=== PATIENT | female | born 1985 | race Caucasian/White ===

== ENCOUNTER 2019-06-30 07:03 | Day surgery (SDC) | payer OTHER, SELFPAY ==
--- NOTE | 2019-06-22 08:45 | PCM.HP.BLA ---
History and Physical Date of Admission: 06/30/19 HPI: The patient is a 34 year old female presenting for pre-operative visit. 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 ??Procedure discussed along with risks, benefits and complications. ?Other alternatives discussed for management. Consent form signed??Yes.? PAST MEDICAL HISTORY PAST MEDICAL HISTORY Diagnosis Date ? Allergy, unspecified not elsewhere classified ? ? Cervical cancer (HCC) 03/2014 ? Gastroesophageal reflux disease 09/14/2015 ? ? PAST SURGICAL HISTORY PAST SURGICAL HISTORY Procedure Laterality Date ? CERVIX UTERI CONIZA LP ELCTRO EXCI ? 04/07/2014 ? KNEE ARTHROSCOPY FOR INFECTION; DRAINAGE Right 12/2016 ? PAST SURGICAL HISTORY OF ? 04/07/08 ? Excision of lipoma from abdomen ? ? CURRENT MEDICATIONS Current Outpatient Medications Medication Sig Dispense Refill ? fluticasone (FLONASE) 50 mcg/actuation nasal spray Use 2 Sprays in each nostril once daily. Rinse mouth after use. 1 Bottle 0 ? ALPRAZolam (XANAX) 0.25 mg tablet Take 1 tablet by mouth once daily as needed for Anxiety for up to 60 days. 30 tablet 0 ? Drospirenone-Ethinyl Estradiol (CARLOS, 28,) 3-0.03 mg per tablet Take one tablet by mouth daily to take active pills continuously 3 Package 4 ? omeprazole 20 mg ORAL capsule Take 20 mg by mouth as needed. ? ? ? No current facility-administered medications for this visit.? ? ALLERGIES:?Aviane [Levonorgestrel-Ethinyl Estrad]; Seasonal Allergies ? PERSONAL HISTORY:? SOCIAL HISTORY Social History ? Tobacco Use ? Smoking status: Never Smoker ? Smokeless tobacco: Never Used Substance Use Topics ? Alcohol use: Yes ? ? Comment: occasionally/ social ? Drug use: No ? FAMILY HISTORY:? FAMILY HISTORY FAMILY HISTORY Problem Relation Age of Onset ? Hypertension Mother ? ? Lipids Mother ? ? Asthma Mother ? ? COPD Mother ? ? Breast Cancer Mother 53 ? other (myocardial infarction) Mother ?[place] ? other (cerebral vascular accident) Father ? ? other (alcoholism) Father ? ? Diabetes Maternal Grandmother ? ? Stroke Maternal Grandmother ? ? Cancer Paternal Grandmother ?cervical or ovarian cancer unsure of which one. ? Cervical Cancer Paternal Grandmother ? ? Asthma Sister ? ? REVIEW OF SYMPTOMS: GENERAL: denies fevers or chills ENDOCRINOLOGY: has not been on steroids Cardiology : denies palpitations or chest pain Respiratory: denies SOB or cough Hematology: denies history of prolonged bleeding or easy bruising or VTE Allergy: Denies history of personal or family history of allergy to anesthesia ? ? PHYSICAL EXAMINATION: ? VITALS:?Blood pressure 132/90, weight 258 lb (117 kg). ? GENERAL:??The patient is well nourished, well hydrated in no acute distress. ?, The patient is oriented to time, place, and person. NECK:?Supple. No lynphadenopathy, normal thyroid, no thyromegaly. LUNGS:?Clear to auscultation bilaterally. no wheezes, rhonchi or rales HEART:?Regular rate and rhythm, Normal heart sounds and No murmurs or gallops GENITALIA:?Normal external genitalia, Urethral meatus normal, Bladder nontender, normal vagina and normal vaginal tone, normal cervix, normal uterus, size and consistency, normal adnexa without masses or tenderness and perineum WNL WET PREP:?Not indicated ? IMPRESSION:?History of endocervical adenocarcinoma ? PLAN:???The risks/benefits/alternatives and personal involved for the planned?total laparoscopic hysterectomy with bilateral salpingectomy?were reviewed with the patient. Her questions were answered to her satisfaction and she desires to proceed. ?Consent was signed. ?I reviewed with her postop instructions and expectations. Patient does plan discharge home same day if she meets criteria. ? ? I have reviewed and updated past medical and surgical history, medications and allergies? this history and physical was completed in my office on 06/20/2019
[2019-06-30] VITALS (8 sets, daily range): BP systolic 143–160; BP diastolic 90–107; PULSE 67–87; RESP 16–20; TEMP 36.2–37.3; O2SAT 95–100; BMI 98.3
[2019-06-30] MEDS: Ondansetron 4 MG/2 ML Vial IV (07:00)
[2019-06-30 07:34] LABS: Internal QC Validated? YES +Cl - CLEAR BKGD; Pregnancy, Urine Negative Negative
[2019-06-30] MEDS: Lactated Ringers 1,000 ML 40 ML IV ×2 (07:41→12:38)
[2019-06-30] MEDS: Phenazopyridine 95 MG Tablet 190 MG PO (07:44)
[2019-06-30] MEDS: Acetaminophen 500 MG Tablet 1000 MG PO (07:45)
[2019-06-30] MEDS: Gabapentin 600 MG Tablet PO (07:46)
[2019-06-30] MEDS: Celecoxib 200 MG Capsule 400 MG PO (07:46)
[2019-06-30] MEDS: Enoxaparin 40 MG/0.4 ML Syringe SC (07:47)
[2019-06-30] MEDS: Magnesium Sulfate 4gm/100mL 4 GM/100 ML IV.SOLN. IV (07:47)
[2019-06-30 07:49] LABS: Hematocrit 41.4 % (37-47); Hemoglobin 13.7 g/dL (12.0-15.0); Mean Corp Hgb Conc 33.1 g/dL (32-36); Mean Corpuscular Hgb 28.8 pg (27.0-32.0); Mean Corpuscular Volume 87.2 fL (81-99); Mean Platelet Vol. 9.7 fl (6.2-12.0); Platelet Count 321 K/mm3 (150-450); RBC Distribution Width CV 13.2 % (11.6-14.6); RBC Distribution Width SD 41.7 fl (35.1-43.9); Red Blood Count 4.75 M/mm3 (4.2-5.4); White Blood Count 7.1 K/mm3 (4.4-11.0)
[2019-06-30 08:25] LABS: Bedside Glucose 77 mg/dL (70-110)
[2019-06-30] MEDS: Cefazolin 2 GM in 0.9% Normal Saline 100 ML IV (09:34)
--- NOTE | 2019-06-30 09:35 | HYST_PTH ---
PATIENT: BRUCE RUSSELL [place] [facility] [id number] AGE/SX: 34/F ROOM: RE06/30/[address]: Dr. Belen Harvey MD : [id number] BED: DIS: 06/30/2019 SPEC #: [id number] RECD: 06/30/19 11:52 STATUS: CAT CUNHA #: [id number] DAYANA: 06/30/19 09:[address]: Belen Harvey DEPT: SURGICAL PATHOLOGY RECD BY: Santo Kruger ENTERED: 07/01/19 10:18 SP TYPE: HYSTERECT OTHR DR: Dr. Irving Perez III, MD Tissues: Uterus, NOS Procedures: Surgery Specimen Level V HEADER OPERATION: ERAS, hysterectomy, TLH, bilateral salpingectomy, cysto PRE-OP DIAGNOSIS: Endocervical adenocarcinoma TISSUE SUBMITTED: Uterus, cervix and bilateral salpingectomy MICROSCOPIC DIAGNOSIS Uterus, hysterectomy: Cervix - nabothian cysts and minimal chronic inflammation. Endocervix - no evidence of carcinoma Endometrium - proliferative endometrium with degenerative change. Myometrium - no pathologic change. Right and left fallopian tubes - no pathologic change. AM:dharmesh 07/04/19 COMMENT Reference is made to the patient's previous LEEP excision ([facility] [id number]) in which Exophytic well differentiated non-invasive endocervical adenocarcinoma was identified. Case has been reviewed in consultation with Dr. Smyth who concurs with the above diagnosis. IDC:SJ MICROSCOPIC DESCRIPTION Slides are reviewed. GROSS DESCRIPTION Received in fixative is one container labeled with the patient's name and designated uterus. The specimen consists of a uterus with attached cervix and two detached fallopian tubes. The uterus with cervix measures 7 x 5.5 x 3 cm and weighs 65 gm. The cervical os is oval in contour and free of gross mass lesions. The serosal aspect of the specimen is smooth and glistening. The paracervical soft tissue is inked in black ink. The endocervical canal measures 3 cm in length and is grossly unremarkable. The triangular endometrial cavity measures 2.7 x 2 cm. The reddish-lemons endometrium measures up to 0.1 cm in thickness. The myometrium measures 1.5 cm in greatest thickness and is free of mass lesions. Both fallopian tubes are similar in appearance with normal fimbriated ends and with average lengths of 6 cm and maximal diameters of 0.5 cm. Domestic Helper sections are submitted in 23 cassettes as follows: 15??anterior ectocervix/endocervix/lower uterine endometrium, totally submitted, 6-10 - anterior endocervix, totally submitted, 1115??posterior ectocervix/endocervix/ lower uterine endometrium, totally submitted, 16 & 17 - posterior endocervix, totally submitted, 18 & 19 - anterior endometrium/ myometrium, 20 & 21 - posterior endometrium/myometrium, 22 - one fallopian tube, 23 - the other fallopian tube. / AM:dharmesh 07/01/19 TC:5 CPT: 40835
[2019-06-30] MEDS: dexAMETHasone 10 MG/ML Vial 8 MG IV (10:02)
[2019-06-30] MEDS: Bupivacaine Mpf 0.5% 30 ML VIAL (10:10)
--- NOTE | 2019-06-30 11:21 | PCM.OPRPT ---
Report of Operation Date of Procedure: 06/30/19 Pre-Operative Diagnosis: Adenocarcinoma in situ of the cervix Post-Operative Diagnosis: Same Surgery/Procedure Performed:: Laparoscopic hysterectomy with bilateral salpingectomy and cystoscopy Description of Surgical Findings:: Normal-appearing uterus, cervix, vagina, tubes and ovaries. Unremarkable peritoneal cavity. poolroom table attendant: Maddie Angeles Type of Anesthesia:: General Anesthesiologist: Sherri Monge Special Medications: NONE Specimen's removed: Uterus, cervix, bilateral fallopian tubes Drains: None Estimated Blood Loss (mL): 100 Fluids Replaced: 1300 Description of Procedure: The patient was taken to the operating room where she was prepped and draped in the dorsal lithotomy position. Her arms were tucked to the side and padded and her legs were placed in the yellowfin stirrups. Care was taken to ensure that she was placed in a neurologically safe and neutral position. A weighted speculum was placed in the vagina and the anterior lip of the cervix was grasped with a single-tooth tenaculum. The cervix sounded to 9 centimeters. Two 0 Vicryl sutures were secured to the cervix at 3 and 9:00. The had adventicular metal washing machine operator placed into the cervix and the balloon inflated. The stay sutures were placed through the cup and secured down to the cervix. Once the metal washing machine operator was secured to the cervix the Blakely catheter was placed to straight drain. Attention was turned to the abdominal portion of the case. Before skin incisions were made they were infiltrated with 0.5% Marcaine solution for local anesthetic. A 5 mm intraumbilical incision was made and while tenting the anterior abdominal wall up with towel clamps a 5 mm blade less trocar and sleeve were advanced directly into the peritoneal cavity. Peritoneal placement was confirmed with the laparoscope the pneumoperitoneum was created, and the underlying abdominal contents were intact. The patient was placed in Trendelenburg and the above findings were noted. Right and left lateral 5 mm trochars were placed under direct visualization without difficulty. The antimesenteric portion of the tube was clamped sealed and transected serially on both sides with the LigaSure device. The round ligaments were clamped sealed and transected the anterior peritoneum was dissected down. The utero-ovarian ligaments were then clamped sealed and transected with the LigaSure device and the pedicles were hemostatic The bladder flap was dissected down with the LigaSure device and blunt dissection and the uterine arteries were then skeletonized. The uterine arteries were clamped sealed and transected on both sides with the LigaSure device. Then along the cardinal ligament uterine arteries adjacent to the cervix were clamped sealed and transected with the LigaSure device to move them away from the vaginal cuff angle. At this point the pedicles were all examined and found to be hemostatic. The bladder flap was rechecked and found to be adequately down. The monopolar tip of the LigaSure device was then used to enter the anterior vagina. The vaginal manipulator cup was noted in the vaginal colpotomy incision was made circumferentially around the cup. When the 3 and 9:00 positions of the cervicovaginal junction were reached these were clamped sealed and transected with the LigaSure device to secure any small remaining vessels. At this point the pedicles were hemostatic from above and attention was turned to the vaginal portion of the case again. The uterus was brought intact out through the vaginal colpotomy incision along with the tubes There is some bleeding from the left vaginal cuff angle and this was grasped with an Allis clamp. Vaginal angle sutures were placed on both sides with 0 Vicryl sutures and care was taken to ensure that the uterosacral ligament was secured into this stitch. The remainder the vagina was then closed horizontally with interrupted 0 Vicryl sutures. The cuff was hemostatic vaginally. The Blakely catheter was removed and a cystoscopy was performed. The bladder appeared normal and was intact. Both ureteral orifices were noted and both ureteral jets were seen. The cystoscope was removed and the bladder was drained. The Blakely was left out. A sponge stick was placed in the vagina to help place traction against the vaginal cuff and the pneumoperitoneum was re-created. The suction wrapper hand was used to remove any blood and clots from the peritoneal cavity. The pedicles were reexamined and found to be hemostatic. The vaginal cuff was hemostatic. Some Reynaldo was placed over the cuff and the pedicles and no active bleeding was noted through the Reynaldo. The right and left lateral ports were taken out and the sites were hemostatic. The pneumoperitoneum was released and even under low pressure there was no bleeding of any of the pedicles are vaginal cuff. The umbilical port was removed. The umbilical skin incisions were closed with Monocryl suture and skin glue by Dr. Mccarthy. The vaginal instruments were removed by me and a vaginal sweep was completed by me. The surgery was performed by me with assistance other than the portions dictated as above. There were no qualified residents available for this procedure. All sponge lap and needle counts were correct and the patient was transferred to the recovery room in stable condition. Grafts/Implants Used: none - Complications none - Admit VTE Documentation VTE Present on Admission: No VTE Mechan Device Prophylaxis: SCD's VTE Pharm Prophylaxis ordered?: No Reason prophylaxis not ordered:: Procedure Not Indicated
--- NOTE | 2019-06-30 11:29 | DCINST_ITS ---
Discharge Diet: No Restrictions Discharge Activity: Return to Normal Activity, May Not Drive - while taking narcotic pain medications., May Shower Return to work on:: 07/25/19 May shower in (days): 1 May resume sexual activity in: 6-8 weeks Lifting Restrictions: 15 lbs Call your doctor if your incision/area has: Continuous Slow Oozing, Sudden Increased Bleeding, Increased Pain/ Swelling, Increased Redness, Foul Smelling Discharge Call your doctor if you observe: Fever of 101 or Higher, Inability to urinate, Inability to have a bowel movement, Using more than one pad per hour Cleanse incision/area with: Soap & Water, - - Incisions have skin glue. It can get wet. Please leave the skin glue on for 10 to 14 days oruntil it falls off Allergies/Adverse Reactions: Allergies No Known Allergies Allergy (Unverified 06/30/19 07:30) Medications to take at Discharge alprazolam 0.25 mg tablet 0.25 mg PO PRN PRN 30 Days #30 tab 03/01/18 Cetirizine HCl [Zyrtec] 10 mg PO PRN PRN 06/27/19 L.acidoph,Paracasei, B.lactis [Probiotic] 1 ea PO DAILY 06/27/19 Omeprazole Magnesium [Prilosec Otc] 20 mg PO PRN PRN 06/27/19 Psyllium Husk [Fiber] 0.4 gm PO DAILY 06/27/19 Primary Care Physician: Irving Perez III, MD [Primary Care Provider] - Test Results: Test results from this visit will be discussed in further detail at your follow- up appointment, if applicable. Please Follow Up With: Belen Harvey MD - [phone] When: 1-2 and 6 weeks or as needed.
[2019-06-30] MEDS: Ketorolac 30 MG/ML Syringe IV (12:37)
[2019-06-30] MEDS: HYDROcodone Bitartrate/Apap 5/325 Tablet PO (13:47)
== END 2019-06-30 15:03 | disposition home or self-care (01) ==
LOC: SDC 07:07 → AC 07:07
PROVIDERS: PCP Family Medicine; Referring Provider Obstetrics & Gynecology; Visit Provider Obstetrics & Gynecology
PROC: 0UT94ZZ Resection of Uterus, Percutaneous Endoscopic Approach (ICD-10-PCS; CPT 58571; principal; 2019-06-30 09:15)
DX: D06.0 Carcinoma in situ of endocervix (principal); N88.8 Other specified noninflammatory disorders of cervix uteri; K21.9 Gastro-esophageal reflux disease without esophagitis; F41.9 Anxiety disorder, unspecified
CPT/HCPCS: 00840; 58571; 81025; 82962; 85027; 86850; 86900; 86901; 88307; J7120; J2405